=== PATIENT | female | born 1985 | race Hispanic/Latino ===

== ENCOUNTER 2022-10-28 04:08 | Observation (INO) | payer MEDICAID, OTHER ==
[~2022-10-28] VITALS: Ht 149.9 cm; Wt 70.2 kg
[2022-10-28] MEDS ORDERED: ONDANSETRON 4MG INJ ONE (04:27)
[2022-10-28 04:48] LABS: BASOPHILS % (AUTO) 0.1 % (0.0-5.0); EOSINOPHILS % (AUTO) 0.7 % (0.0-8.0); HEMATOCRIT 43.8 % (36-48); LYMPHOCYTES % (AUTO) 8.6 % (21.0-51.0); MEAN CORPUSCULAR HEMOGLOBIN 28.8 pg (27.0-33.0); MEAN CORPUSCULAR HGB CONC 33.6 g/dL (32.0-36.0); MEAN CORPUSCULAR VOLUME 85.9 fL (79-99); MONOCYTES % (AUTO) 6.3 % (3.0-13.0); NEUTROPHILS % (AUTO) 83.9 % (40.0-77.0); PLATELET COUNT (AUTO) 345 K/uL (130-400); RED CELL DISTRIBUTION WIDTH 13.2 % (11.0-15.5); WHITE BLOOD COUNT (AUTO) 9.1 K/uL (4.8-10.8)
[2022-10-28 04:49] LABS: BILIRUBIN,URINE NEGATIVE (NEGATIVE); COLOR,URINE YELLOW (YELLOW); GLUCOSE, URINE (UA) NEGATIVE (NEGATIVE); KETONES,URINE NEGATIVE (NEGATIVE); LEUKOCYTE ESTERASE ,URINE NEGATIVE Leu/uL (NEGATIVE); NITRATE,URINE NEGATIVE (NEGATIVE); OCCULT BLOOD,URINE NEGATIVE (NEGATIVE); PROTEIN,URINE 30 mg/dL (NEGATIVE); UROBILINOGEN,URINE 3 mg/dL (0.2-1.0)
[2022-10-28 04:51] LABS: APPEARANCE,URINE CLEAR (CLEAR)
[2022-10-28 04:58] LABS: CARBON DIOXIDE 25 mmol/L (21-32); CHLORIDE 101 mmol/L (101-111); CREATININE 0.9 mg/dL (0.5-1.5); GLOMERULAR FILTR. RATE CALC 84 mL/min (>90); GLUCOSE,RANDOM 115 mg/dL (70-105); POTASSIUM 3.7 mmol/L (3.5-5.1); SODIUM SERUM 137 mmol/L (136-145); UREA NITROGEN, BLOOD 12 mg/dL (7-18)
[2022-10-28] MEDS ORDERED: 0.9%NACL 1000ML 1,000 ML IV ONE ×3 (05:00→06:30)
[2022-10-28] MEDS ORDERED: ONDANSETRON 4MG INJ IVP ONE ×2 (05:00→06:30)
[2022-10-28 05:02] LABS: ALANINE AMINOTRANSFERASE 51 U/L (12-78); ASPARTATE AMINOTRANSFERASE 26 U/L (10-37); TOTAL PROTEIN, SERUM 7.7 g/dL (6.0-8.3)
[2022-10-28 05:03] LABS: LIPASE < 50 U/L (114-286)
[2022-10-28] MEDS ORDERED: KETOROLAC 30MG VIAL (30MG/ML) ONE (06:04)
[2022-10-28] MEDS ORDERED: DIPHENOXYLATE HCL/ATROPINE 2.5/0.025 MG TAB PO ONE ×2 (06:05→06:30)
[2022-10-28] MEDS ORDERED: KETOROLAC 30MG VIAL (30MG/ML) IVP ONE (06:30)
[2022-10-28] MEDS ORDERED: MORPHINE 2 MG SYG IVP ONE (09:30)
[2022-10-28] MEDS: LEVOFLOXACIN 750 MG TABLET PO SCH (10:07)
[2022-10-28 13:45] LABS: AMPHET/METH SCREEN,URINE NEGATIVE (NEGATIVE); BARBITURATE SCREEN, URINE NEGATIVE (NEGATIVE); BENZODIAZEPINES SCREEN,URINE NEGATIVE (NEGATIVE); CANNABINOID SCREEN,URINE NEGATIVE (NEGATIVE); COCAINE SCREEN,URINE NEGATIVE (NEGATIVE); OPIATE SCREEN,URINE NEGATIVE (NEGATIVE); PHENCYCLIDINE SCREEN,URINE NEGATIVE (NEGATIVE)
[2022-10-28] MEDS ORDERED: ONDANSETRON 4MG INJ IV PRN (14:00)
[2022-10-28] MEDS ORDERED: ACETAMINOPHEN 325 MG TAB PO PRN ×2 (14:00)
[2022-10-28] MEDS ORDERED: LACTATED RINGERS 1000ML 1,000 ML IV ONE (14:00)
[2022-10-28] MEDS ORDERED: DiphenhydrAMINE HCL 50 MG/ML VIAL IV ONE (14:00)
[2022-10-28] MEDS ORDERED: PROCHLORPERAZINE 10MG/2ML INJ IV ONE (14:00)
[2022-10-28 14:34] LABS: BASOPHILS % (AUTO) 0.2 % (0.0-5.0); EOSINOPHILS % (AUTO) 0.4 % (0.0-8.0); HEMATOCRIT 37.8 % (36-48); LYMPHOCYTES % (AUTO) 10.2 % (21.0-51.0); MEAN CORPUSCULAR HEMOGLOBIN 28.8 pg (27.0-33.0); MEAN CORPUSCULAR HGB CONC 33.1 g/dL (32.0-36.0); MEAN CORPUSCULAR VOLUME 87.1 fL (79-99); MONOCYTES % (AUTO) 5.9 % (3.0-13.0); NEUTROPHILS % (AUTO) 82.9 % (40.0-77.0); PLATELET COUNT (AUTO) 257 K/uL (130-400); RED BLOOD CELL COUNT(AUTO) 4.34 MIL/uL (4.00-5.50); RED CELL DISTRIBUTION WIDTH 13.2 % (11.0-15.5); WHITE BLOOD COUNT (AUTO) 5.6 K/uL (4.8-10.8)
[2022-10-28 14:38] LABS: CREATININE 0.8 mg/dL (0.5-1.5); POTASSIUM 3.3 mmol/L (3.5-5.1)
[2022-10-28 14:45] LABS: TOTAL PROTEIN, SERUM 5.9 g/dL (6.0-8.3)
[2022-10-28] MEDS: 0.9%NACL 1000ML 1,000 ML IV SCH (15:29)
[2022-10-28] MEDS ORDERED: POTASSIUM CHLORIDE 20MEQ/100ML 100 ML IV PRN (15:30)
[2022-10-28 19:00] VITALS: BP 104/67
[2022-10-28] MEDS ORDERED: MELO5CAP3 PO (20:49)
[2022-10-28] MEDS: FAMOTIDINE 20MG VIAL IV SCH (21:37)
[2022-10-28 23:52] VITALS: BP 97/58
[2022-10-29 04:00] VITALS: BP 100/63
[2022-10-29 05:06] LABS: BASOPHILS % (AUTO) 0.4 % (0.0-5.0); EOSINOPHILS % (AUTO) 2.2 % (0.0-8.0); HEMATOCRIT 35.5 % (36-48); MEAN CORPUSCULAR HGB CONC 33.2 g/dL (32.0-36.0); MEAN CORPUSCULAR VOLUME 87.2 fL (79-99); MONOCYTES % (AUTO) 14.4 % (3.0-13.0); NEUTROPHILS % (AUTO) 56.6 % (40.0-77.0); PLATELET COUNT (AUTO) 253 K/uL (130-400); RED BLOOD CELL COUNT(AUTO) 4.07 MIL/uL (4.00-5.50); RED CELL DISTRIBUTION WIDTH 13.4 % (11.0-15.5); WHITE BLOOD COUNT (AUTO) 2.8 K/uL (4.8-10.8)
[2022-10-29 05:19] LABS: ALBUMIN 2.6 g/dL (3.5-5.0); CREATININE 0.8 mg/dL (0.5-1.5); POTASSIUM 3.5 mmol/L (3.5-5.1); TOTAL PROTEIN, SERUM 5.4 g/dL (6.0-8.3)
[2022-10-29 06:16] LABS: BAND NEUTROPHILS % (MANUAL) 22 % (0-2); EOSINOPHILS % (MANUAL) 1 % (1-6); LYMPHOCYTES % (MANUAL) 15 % (22-44); MAN.DIFF COMMENT-IMPRESSION MANUAL DIFFERENTIAL; MONOCYTES % (MANUAL) 9 % (2-9); REACTIVE LYMPHOCYTES 2 % (0-0); SEGMENTED NEUTROPHILS % 51 % (40-70)
[2022-10-29] MEDS: 0.9%NACL 1000ML 1,000 ML IV SCH ×3 (06:58→19:45)
[2022-10-29 08:00] VITALS: BP 103/65
[2022-10-29] MEDS: FAMOTIDINE 20MG VIAL IV SCH ×2 (09:48→19:44)
[2022-10-29] MEDS: LEVOFLOXACIN 750 MG TABLET PO SCH (09:55)
[2022-10-29 12:00] VITALS: BP 107/61
[2022-10-29 16:00] VITALS: BP 117/75
[2022-10-29 20:00] VITALS: BP 103/69
[2022-10-30] VITALS: BP 111/77
[2022-10-30 04:00] VITALS: BP 109/73
[2022-10-30] MEDS: 0.9%NACL 1000ML 1,000 ML IV SCH (04:38)
[2022-10-30 04:58] LABS: BASOPHILS % (AUTO) 0.7 % (0.0-5.0); EOSINOPHILS % (AUTO) 1.4 % (0.0-8.0); HEMATOCRIT 35.2 % (36-48); LYMPHOCYTES % (AUTO) 52.2 % (21.0-51.0); MEAN CORPUSCULAR HEMOGLOBIN 28.5 pg (27.0-33.0); MEAN CORPUSCULAR HGB CONC 33.2 g/dL (32.0-36.0); MEAN CORPUSCULAR VOLUME 85.9 fL (79-99); NEUTROPHILS % (AUTO) 28.3 % (40.0-77.0); PLATELET COUNT (AUTO) 248 K/uL (130-400); RED CELL DISTRIBUTION WIDTH 13.2 % (11.0-15.5); WHITE BLOOD COUNT (AUTO) 2.8 K/uL (4.8-10.8)
[2022-10-30 05:13] LABS: ALBUMIN 2.9 g/dL (3.5-5.0); CREATININE 0.9 mg/dL (0.5-1.5); MAGNESIUM 1.6 mg/dL (1.80-2.40); POTASSIUM 3.8 mmol/L (3.5-5.1); TOTAL PROTEIN, SERUM 5.7 g/dL (6.0-8.3)
[2022-10-30 05:47] LABS: BAND NEUTROPHILS % (MANUAL) 9 % (0-2); BASOPHILS % (MANUAL) 2 % (0-2); EOSINOPHILS % (MANUAL) 3 % (1-6); LYMPHOCYTES % (MANUAL) 49 % (22-44); MAN.DIFF COMMENT-IMPRESSION MANUAL DIFFERENTIAL; MONOCYTES % (MANUAL) 11 % (2-9); OTHER CELLS,MANUAL % 2 (0-0); REACTIVE LYMPHOCYTES 5 % (0-0); SEGMENTED NEUTROPHILS % 19 % (40-70)
[2022-10-30 05:48] LABS: PLATELET MORPHOLOGY COMMENT ADEQUATE
[2022-10-30 08:00] VITALS: BP 116/60
[2022-10-30] MEDS: LEVOFLOXACIN 750 MG TABLET PO SCH (09:43)
[2022-10-30] MEDS: FAMOTIDINE 20MG VIAL IV SCH (09:43)
[2022-10-30 12:00] VITALS: BP 109/76
[2022-10-30] MEDS ORDERED: MAGNESIUM 2GM PREMIX 50ML 50 ML IV PRN (13:30)
[2022-10-30 16:00] VITALS: BP 117/74
== END 2022-10-30 18:00 | disposition home or self-care (01) ==
LOC: EDH 04:08 → EDHIP 04:09 → 4DH 19:20 → 3BH 10-29 18:50
PROVIDERS: ADMIT Hospitalist; ATTEND Hospitalist
DX: R11.2 Nausea with vomiting, unspecified (principal); Z20.822 Contact with and (suspected) exposure to COVID-19; R10.9 Unspecified abdominal pain; M54.9 Dorsalgia, unspecified; Z90.49 Acquired absence of other specified parts of digestive tract; Z98.891 History of uterine scar from previous surgery
CPT/HCPCS: 96361 ×3; 96375; 99285; 84484; 80053 ×4; 80305; 83690; 85025 ×4; 87880; 87804 ×2; 81003; 81025; 36415 ×3; 87635; 70450; 87507; 96376 ×2; 96365; 96366; 83735; G0378 ×52; C9803; J7120; J1200; J3490 ×4; J7030; J0780; J2405; J3480; J1885; J3475